=== PATIENT | male | born 1995 | race Caucasian/White ===

== ENCOUNTER 2017-06-06 20:37 | Emergency (ER) | payer MEDICAID, OTHER ==
[2017-06-06] MEDS ORDERED: Lidocaine 1% with EPINEPHrine 1:100,000 20 ML MDV INFILT ONE (20:38)
[2017-06-06] MEDS ORDERED: Clindamycin HCl 150 MG Cap PO ONE (21:07)
[2017-06-06] MEDS ORDERED: Acetaminophen/HYDROcodone 325-5 MG Tab PO ONE (21:11)
--- NOTE | 2017-06-06 21:17 | EDM.PDOC ---
ED HPI GENERAL MEDICAL PROBLEM - General Chief Complaint: Skin Complaint Stated Complaint: CYST ON BUTTOCK Time Seen by Provider: 06/06/17 20:55 Source of Information: Reports: Patient, Old Records History Limitations: Reports: No Limitations - History of Present Illness INITIAL COMMENTS - FREE TEXT/NARRATIVE: 21 yo male started with a pimple on his R buttock last Monday that has grown substantially since then. No fever. Has not been to the clinic. Is not diabetic. No allergies. Onset: Gradual Onset Date: 06/04/17 Duration: Day(s):, Getting Worse Location: Reports: Other (R medial buttocks) Quality: Reports: Burning Severity: Moderate Improves with: Reports: Other (avoiding pressure on area.) Worsens with: Reports: Other (pressure on area. ) Context: Reports: Other (began as a "pimple". 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) - Related Data Allergies Allergy/AdvReac Type Severity Reaction Status Date / Time No Known Allergies Allergy Verified 05/21/14 15:11 Home Meds: Home Meds Clindamycin HCl [Cleocin] 300 mg PO Q8H #14 cap 06/06/17 [Rx] Past Medical History - Past Health History Medical/Surgical History: Denies Medical/Surgical History Social & Family History - Tobacco Use Smoking Status *Q: Never Smoker Second Hand Smoke Exposure: No - Alcohol Use Days Per Week of Alcohol Use: 0 - Recreational Drug Use Recreational Drug Use: No - Living Situation & Occupation Living situation: Reports: with Family Occupation: Student ED ROS GENERAL - Review of Systems Review Of Systems: See Below Constitutional: Reports: No Symptoms GI/Abdominal: Reports: No Symptoms : Reports: No Symptoms Musculoskeletal: Reports: No Symptoms Skin: Reports: Rash (R medial buttocks), Erythema Neurological: Reports: No Symptoms ED EXAM, SKIN/RASH Exam: See Below Exam Limited By: No Limitations General Appearance: Alert, WD/WN, No Apparent Distress Eye Exam: Bilateral Eye: Normal Inspection Throat/Mouth: Normal Lips, Normal Voice, No Airway Compromise Head: Atraumatic, Normocephalic Neck: Normal Inspection Respiratory/Chest: No Respiratory Distress, No Accessory Muscle Use Neurological: Alert, Oriented, CN II-XII Intact, Normal Cognition, No Motor/ Sensory Deficits Psychiatric: Normal Affect, Normal Mood Skin: Warm, Dry, Intact, Erythema, Increased Warmth, Other (abscess R medial buttocks, approx 2.6 cm in diameter) Location, Skin: Other (R medial buttocks) Associated features: Warmth, Tenderness, Induration Lymphatic: No Adenopathy ED SKIN PROCEDURES - I&D Site: R medial buttocks Skin Prep: Providone-Iodine (Betadine) Local Anesthesia: Lidocaine: 1% with EPI Local Anesthetic Volume: 3cc Area Incised With: 11 Blade Drainage: Purulent, Moderate Amount Packed With: 1/2 in. Iodoform Sterile Dressinx4(s) Complications: No Course - Orders/Labs/Meds Meds: Medications Discontinued Medications Generic Name Dose Route Start Last Admin Trade Name Freq PRN Reason Stop Dose Admin Clindamycin HCl 300 mg 06/06/17 21:07 Cleocin PO 06/06/17 21:08 ONETIME ONE Departure - Departure Time of Disposition: 21:21 Disposition: Home, Self-Care 01 Condition: Good Clinical Impression: Encounter for incision and drainage procedure, Abscess of buttock, right - Discharge Information Prescriptions: Clindamycin HCl [Cleocin] 300 mg PO Q8H #14 cap Referrals: Kaiser Lang MD [Primary Care Provider] - Forms: ED Department Discharge, ED Return to Work/School Form Additional Instructions: Sitz baths in warm water several times a day. Take clindamycin every 8 hrs. Recheck in the clinic late or early Monday, call for an appt. Take [place] or acetaminophen for pain relief.
[2017-06-06 21:38] VITALS: BP 134/61
== END 2017-06-06 21:37 | disposition home or self-care (01) ==
LOC: FB.ED 20:37
DX: L02.31 Cutaneous abscess of buttock (principal)
CPT/HCPCS: 10060; 87070; 87075; 87205; 99283; A9270

== ENCOUNTER 2018-03-16 02:55 | Emergency (ER) | payer OTHER ==
[2018-03-16 03:01] VITALS: BP 120/64
--- NOTE | 2018-03-16 03:41 | EDM.PDOC ---
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 There is swelling, ecchymoses, and tenderness at the site of injury, There is no loss of movement or sensation. He has taken no meds. - Related Data Allergies Allergy/AdvReac Type Severity Reaction Status Date / Time naproxen [From Aleve] Allergy Headache Verified 03/16/18 03:44 Past Medical History - Past Health History Medical/Surgical History: Denies Medical/Surgical History Social & Family History - Family History Oncologic: Reports: Colon - Caffeine Use Caffeine Use: Reports: None - Living Situation & Occupation Living situation: Reports: with Family Occupation: Student Review of Systems - Review of Systems Review Of Systems: ROS reveals no pertinent complaints other than HPI. ED EXAM, GENERAL - Physical Exam Exam: See Below Exam Limited By: No Limitations General Appearance: Alert, WD/WN, Mild Distress Head: Normocephalic Neck: Normal Inspection, Non-Tender Respiratory/Chest: Lungs Clear Cardiovascular: Regular Rate, Rhythm Back Exam: Normal Inspection Extremities: Limited Range of Motion (R foot: inspection reveals swelling and ecchymoses overlying the 4th and 5th MT, pain with maneuver, hindfoot and ankle are satisfactory, CMS intact ) Neurological: Alert, Oriented, CN II-XII Intact, No Motor/Sensory Deficits Psychiatric: Normal Affect, Normal Mood Skin Exam: Warm, Dry, Normal Color Course - Vital Signs Text/Narrative:: I reviewed x rays of R foot, negative for fx. Last Recorded V/S: Last Vital Signs Temp 36.7 C 03/16/18 02:59 Pulse 78 03/16/18 02:59 Resp BP 120/64 03/16/18 02:59 Pulse Ox 99 03/16/18 02:59 - Orders/Labs/Meds Orders: Active Orders 24 hr Category Date Time Status Foot Comp Min 3V Rt [CR] Stat Exams 03/16/18 03:22 Ordered Departure - Departure Time of Disposition: 03:52 Disposition: Home, Self-Care 01 Condition: Fair Clinical Impression: Contusion of right foot, initial encounter - Discharge Information Referrals: Kaiser Lang MD [Primary Care Provider] - Forms: ED Department Discharge - Problem List & Annotations (1) Contusion of right foot, initial encounter SNOMED Code(s): 51183585 Code(s): S90.31XA - CONTUSION OF RIGHT FOOT, INITIAL ENCOUNTER Status: Acute Current Visit: Yes Annotation/Comment:: Ibuprofen for pain, heel wt bearing for comfort, bench work for the 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 - Problem List Review Problem List Initiated/Reviewed/Updated: Yes - My Orders Last 24 Hours: My Active Orders 03/16/18 03:22 Foot Comp Min 3V Rt [CR] Stat - Assessment/Plan Last 24 Hours: My Active Orders 03/16/18 03:22 Foot Comp Min 3V Rt [CR] Stat Plan: Follow up with PCP in 1 week for medical clearance.
--- NOTE | 2018-03-16 11:01 | CR ---
INDICATION: 110 pound cylindar fell onto right foot. RIGHT FOOT: Three views of the right foot were obtained and show the site of injury laterally at the 5th metatarsophalangeal joint area. There does appear to be some soft tissue swelling in that area. Dorsal soft tissue swelling at the level of the metatarsals is also seen. An underlying fracture, dislocation, or other significant bone or joint abnormality was not identified. MTDD
== END 2018-03-16 04:14 | disposition home or self-care (01) ==
LOC: FB.ED 02:55
DX: S90.31XA Contusion of right foot, initial encounter (principal); Z88.8 Allergy status to other drugs, medicaments and biological substances; W20.8XXA Other cause of strike by thrown, projected or falling object, initial encounter; Y99.0 Civilian activity done for income or pay
CPT/HCPCS: 73630-RT; 99000; 99283

== ENCOUNTER 2018-06-06 18:45 | Emergency (ER) | payer OTHER ==
[2018-06-06 19:01] VITALS: BP 105/64
--- NOTE | 2018-06-06 19:17 | EDM.PDOC ---
ED HPI GENERAL MEDICAL PROBLEM - General Chief Complaint: Upper Extremity Injury/Pain Stated Complaint: RT SHOULDER PAIN Time Seen by Provider: 06/06/18 18:45 Source of Information: Reports: Patient, Family History Limitations: Reports: No Limitations - History of Present Illness INITIAL COMMENTS - FREE TEXT/NARRATIVE: 22 y.o.w.m came with his mom to the ed due to pain at his right arm and shoulder. Pt does at work a repetitive movement all day long. pt has this pain for weeks and is work related. Pt did not take any motrin/tylenol, he is not allergic to motrin etc. No other acute medical issues. BP 105/64 Pulse 64 RR 18 Pulse ox 100% on RA Temp 36.8 Onset Date: 06/02/18 Onset Time: 06:00 Duration: Day(s):, Constant, Intermittent Location: Reports: Upper Extremity, Right Quality: Reports: Dull Severity: Mild Improves with: Reports: Rest Worsens with: Reports: Movement Context: Reports: Other right shoulder Pain Score (Numeric/FACES): 2 - Related Data Allergies Allergy/AdvReac Type Severity Reaction Status Date / Time No Known Allergies Allergy Verified 06/06/18 19:21 Home Meds: Home Meds Ibuprofen [Motrin] 600 mg PO TID PRN #30 tab 06/06/18 [Rx] Past Medical History - Past Health History Medical/Surgical History: Denies Medical/Surgical History - Past Surgical History GI Surgical History: Reports: Colonoscopy, Other (See Below) Other GI Surgeries/Procedures: Colonoscopy at age 16. Dermatological Surgical History: Reports: Other (See Below) Social & Family History - Family History Oncologic: Reports: Colon - Tobacco Use Smoking Status *Q: Never Smoker - Caffeine Use Caffeine Use: Reports: None - Recreational Drug Use Recreational Drug Use: No - Living Situation & Occupation Living situation: Reports: with Family Occupation: Student Review of Systems - Review of Systems Review Of Systems: See Below Constitutional: Reports: No Symptoms Eyes: Reports: No Symptoms Ears: Reports: No Symptoms Nose: Reports: No Symptoms Mouth/Throat: Reports: No Symptoms Respiratory: Reports: No Symptoms Cardiovascular: Reports: No Symptoms GI/Abdominal: Reports: No Symptoms Genitourinary: Reports: No Symptoms Musculoskeletal: Reports: Shoulder Pain Skin: Reports: No Symptoms Neurological: Reports: No Symptoms Psychiatric: Reports: No Symptoms ED EXAM, GENERAL - Physical Exam Exam: See Below Exam Limited By: No Limitations General Appearance: Alert, WD/WN, Mild Distress Eye Exam: Bilateral Eye: Normal Inspection Ears: Normal External Exam Ear Exam: Bilateral Ear: Auricle Normal Nose: Normal Inspection Throat/Mouth: Normal Inspection, Normal Lips, Normal Teeth, Normal Gums, Normal Oropharynx, Normal Voice, No Airway Compromise Head: Atraumatic, Normocephalic Neck: Normal Inspection, Supple, Non-Tender, Full Range of Motion Respiratory/Chest: No Respiratory Distress, Lungs Clear, Normal Breath Sounds, No Accessory Muscle Use, Chest Non-Tender Cardiovascular: Normal Peripheral Pulses, Regular Rate, Rhythm, No Edema, No Gallop, No JVD, No Murmur, No Rub Peripheral Pulses: 2+: Brachial (L) GI/Abdominal: Normal Bowel Sounds, Soft, Non-Tender, No Organomegaly, No Distention, No Abnormal Bruit, No Mass, Pelvis Stable (Male) Exam: Deferred Rectal (Males) Exam: Deferred Back Exam: Normal Inspection, Full Range of Motion Extremities: Normal Inspection, Normal Range of Motion, No Pedal Edema, Normal Capillary Refill, Other (tender righ biceps muscle) Neurological: Alert, Oriented, CN II-XII Intact, Normal Cognition, Normal Gait, No Motor/Sensory Deficits Psychiatric: Normal Affect, Normal Mood Skin Exam: Warm, Dry, Intact Lymphatic: No Adenopathy Course - Vital Signs Text/Narrative:: 22 y.o.w.m came with his mom to the ed due to pain at his right arm and shoulder. Pt does at work a repetitive movement all day long. pt has this pain for weeks and is work related. Pt did not take any motrin/tylenol, he is not allergic to motrin etc. No other acute medical issues. BP 105/64 Pulse 64 RR 18 Pulse ox 100% on RA Temp 36.8 PE: WNWDW M with left upper arm discomfort, FROM of all extremities Imaging: not indicated Impression: R shoulder sprainarm sprain Tx: Pt will apply ice at home and will buy motrin from [email or web address], he has no insurance Reexam: Improved Plan: D/C with instructions Last Recorded V/S: Last Vital Signs Temp 36.6 C 06/06/18 18:45 Pulse 63 06/06/18 18:45 Resp 18 06/06/18 18:45 BP 105/64 06/06/18 18:45 Pulse Ox 100 06/06/18 18:45 Departure - Departure Time of Disposition: 19:18 Disposition: Home, Self-Care 01 Condition: Good Clinical Impression: Sprain of shoulder, right Qualifiers: Encounter type: subsequent encounter Shoulder sprain type: unspecified sprain Qualified Code(s): S43.401D - Unspecified sprain of right shoulder joint, subsequent encounter - Discharge Information Prescriptions: Ibuprofen [Motrin] 600 mg PO TID PRN #30 tab PRN Reason: Pain Referrals: Kaiser Lang MD [Primary Care Provider] - Forms: ED Department Discharge Additional Instructions: Ice, rest and elevation, motin for paon, light duty for 3 days, please f/u, come back if your symptoms get worse acutely.
== END 2018-06-06 19:27 | disposition home or self-care (01) ==
LOC: FB.ED 18:45
DX: S43.401A Unspecified sprain of right shoulder joint, initial encounter (principal); X50.3XXA Overexertion from repetitive movements, initial encounter
CPT/HCPCS: 99282

== ENCOUNTER 2018-10-28 17:06 | Emergency (ER) | payer SELFPAY ==
[2018-10-28] MEDS ORDERED: SUMAtriptan 6 MG/0.5 ML SDV SUBCUT ONE (17:21)
[2018-10-28] MEDS ORDERED: Ondansetron 8 MG Tab.DIS PO ONE (17:21)
--- NOTE | 2018-10-28 17:24 | EDM.PDOC ---
ED HPI GENERAL MEDICAL PROBLEM - General Stated Complaint: MIGRAINE Time Seen by Provider: 10/28/18 17:06 Source of Information: Reports: Patient, Family History Limitations: Reports: No Limitations - History of Present Illness INITIAL COMMENTS - FREE TEXT/NARRATIVE: 23 y.o.w.m came with his mom to the ed because of migraine H/A with severe pain behind his right eye which mad him to have a vision for a few sec. No trauma, denies H/O Drug use. Pt is nauseated and has photophobia. No other acute medical issues. His grand pa on a brain aneurysm. 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 Dermatological Surgical History: Reports: Other (See Below) Social & Family History - Family History Oncologic: Reports: Colon - Caffeine Use Caffeine Use: Reports: None - Living Situation & Occupation Living situation: Reports: with Family Occupation: Student ED ROS GENERAL - Review of Systems Review Of Systems: See Below Constitutional: Reports: No Symptoms HEENT: Reports: No Symptoms Respiratory: Reports: No Symptoms Cardiovascular: Reports: No Symptoms Endocrine: Reports: No Symptoms GI/Abdominal: Reports: Nausea : Reports: No Symptoms Musculoskeletal: Reports: No Symptoms Skin: Reports: No Symptoms Neurological: Reports: Headache Psychiatric: Reports: No Symptoms Hematologic/Lymphatic: Reports: No Symptoms Immunologic: Reports: No Symptoms - Physical Exam Exam: See Below Exam Limited By: No Limitations General Appearance: Alert, WD/WN, Moderate Distress Eye Exam: Bilateral Eye: Normal Inspection Ears: Normal External Exam, Normal Canal Nose: Normal Inspection, Normal Mucosa, No Blood Throat/Mouth: Normal Inspection, Normal Lips, Normal Teeth, Normal Gums, Normal Voice, No Airway Compromise Head Exam: Atraumatic, Normocephalic Neck: Normal Inspection, Supple, Non-Tender, Full Range of Motion Respiratory/Chest: No Respiratory Distress, Lungs Clear, Normal Breath Sounds, Chest Non-Tender Cardiovascular: Normal Peripheral Pulses, Regular Rate, Rhythm, No Edema, No Gallop, No Rub GI/Abdominal: Normal Bowel Sounds, Soft, Non-Tender, No Organomegaly, No Abnormal Bruit, No Mass, Pelvis Stable (Male) Exam: Deferred Rectal (Males) Exam: Deferred Neuro Exam (Abbreviated): Alert, Oriented, CN II-XII Intact, Normal Cognition, Normal Gait DTR: 0: Tricep (R), Achilles (R), 2+: Bicep (L) Back Exam: Normal Inspection, Full Range of Motion Extremities: Normal Inspection, Normal Range of Motion, Non-Tender, No Pedal Edema Psychiatric: Normal Affect, Normal Mood Skin Exam: Warm, Dry, Intact, Normal Color, No Rash Course - Vital Signs Text/Narrative:: 23 y.o.w.m came with his mom to the ed because of migraine H/A with severe pain behind his right eye which mad him to have a vision for a few sec. No trauma, denies H/O Drug use. Pt is nauseated and has photophobia. No other acute medical issues. His grand pa on a brain aneurysm. BP RR 18, Pulse ox 100% Temp 36.8 Pulse 81 Imaging: Not indicated.it is not the worst headache ever Labs: Not indicated Impression: Migraine H/A Tx: Zofran, Imitrex, Toradol. Reexam: Pt was 100% improved/pain free. Refused Nausea/pain meds prescriptions Plan: D/C with instructions Last Recorded V/S: Last Vital Signs Temp 36.7 C 10/28/18 17:20 Pulse 70 10/28/18 18:49 Resp 17 10/28/18 18:49 BP 108/67 10/28/18 18:49 Pulse Ox 98 01/27/19 18:49 - Orders/Labs/Meds Meds: Medications Discontinued Medications Generic Name Dose Route Start Last Admin Trade Name Greta PRFlaquita Reason Stop Dose Admin Ketorolac Tromethamine 60 mg 10/28/18 17:59 10/28/18 18:32 Toradol IM 10/28/18 18:00 60 mg ONETIME ONE Administration Ondansetron HCl 8 mg 10/28/18 17:21 10/28/18 17:31 Zofran Odt PO 10/28/18 17:22 8 mg ONETIME ONE Administration Sumatriptan Succinate 6 mg 10/28/18 17:21 10/28/18 17:31 Imitrex SUBCUT 10/28/18 17:22 6 mg ONETIME ONE Administration Departure - Departure Time of Disposition: 18:46 Disposition: Home, Self-Care 01 Condition: Good Clinical Impression: Migraine Qualifiers: Status migrainosus presence: without status migrainosus Intractability: not intractable - Discharge Information Instructions: Migraine Headache Referrals: Kaiser Lang MD [Primary Care Provider] - Forms: ED Department Discharge Additional Instructions: Please f/u with your PMD as needed, please come back if your symptoms get worse acutely
[2018-10-28] MEDS ORDERED: Ketorolac 60 MG/2 ML SDV IM ONE (17:59)
[2018-10-28 19:15] VITALS: BP 108/67
== END 2018-10-28 18:55 | disposition home or self-care (01) ==
LOC: FB.ED 17:06
DX: G43.909 Migraine, unspecified, not intractable, without status migrainosus (principal)
CPT/HCPCS: 96372; 99283; A9270; J1885; J3030

== ENCOUNTER 2018-12-30 12:10 | Emergency (ER) | payer SELFPAY ==
[2018-12-30 12:36] VITALS: BP 96/62
[2018-12-30] MEDS ORDERED: Ketorolac 30 MG/ML SDV IVPUSH ONE (12:39)
[2018-12-30] MEDS ORDERED: Metoclopramide 10 MG/2 ML SDV IVPUSH ONE (12:39)
--- NOTE | 2018-12-30 12:45 | EDM.PDOC ---
ED HPI GENERAL MEDICAL PROBLEM - General Chief Complaint: Headache Stated Complaint: MIGRAINE Time Seen by Provider: 12/30/18 12:30 Source of Information: Reports: Patient, Family History Limitations: Reports: No Limitations - History of Present Illness INITIAL COMMENTS - FREE TEXT/NARRATIVE: c/o migraine awoke at 11:30 and had sharp pain behind L eye, took APAP 1000 mg and naprosyn 250 mg without benefit, came to ED directly, here with mother in ED 2m ago and tx'ed with Zofran 8 mg SL, Imitrex 6 mg SC and Toradol 60 mg IM has had migraines for years mother concerned as they are inc'd frequency and awoke him from sleep today which has not happened in the past, mother requesting imaging no prior head CT in EHR no visual change, some nausea, no V 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, 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 Pain Score (Numeric/FACES): 8 - Related Data Allergies Allergy/AdvReac Type Severity Reaction Status Date / Time No Known Allergies Allergy Verified 12/30/18 12:25 Home Meds: Home Meds Ibuprofen [Motrin] 600 mg PO TID PRN #30 tab 06/06/18 [Rx] Acetaminophen [Tylenol Extra Strength] 1,000 mg PO Q6HR PRN 12/30/18 [History] Naproxen 250 mg PO Q6HR PRN 12/30/18 [History] Past Medical History - Past Health History Medical/Surgical History: Denies Medical/Surgical History - Past Surgical History GI Surgical History: Reports: Colonoscopy, Other (See Below) Other GI Surgeries/Procedures: Colonoscopy at age 16. Dermatological Surgical History: Reports: Other (See Below) Social & Family History - Family History Family Medical History: Noncontributory Oncologic: Reports: Colon - Caffeine Use Caffeine Use: Reports: None - Living Situation & Occupation Living situation: Reports: with Family Occupation: Student ED ROS GENERAL - Review of Systems Review Of Systems: See Below Constitutional: Reports: No Symptoms HEENT: Reports: No Symptoms Respiratory: Reports: No Symptoms Cardiovascular: Reports: No Symptoms Endocrine: Reports: No Symptoms GI/Abdominal: Reports: No Symptoms : Reports: No Symptoms Musculoskeletal: Reports: No Symptoms Skin: Reports: No Symptoms Neurological: Reports: Headache Psychiatric: Reports: No Symptoms Hematologic/Lymphatic: Reports: No Symptoms Immunologic: Reports: No Symptoms ED EXAM, NEURO - Physical Exam Exam: See Below Exam Limited By: No Limitations General Appearance: Alert, WD/WN, Moderate Distress, Other (lying on bed on L side, holding his L eye and L buddhism in his hand, rocking from side to side, eyes closed, normal speech, appears uncomfortable) Ears: Normal External Exam Nose: Normal Inspection Head Exam: Atraumatic, Normocephalic Neck: Normal Inspection, Non-Tender Respiratory/Chest: No Respiratory Distress Cardiovascular: Regular Rate, Rhythm Course - Vital Signs Last Recorded V/S: Last Vital Signs Temp 36.8 C 12/30/18 12:36 Pulse 116 H 12/30/18 12:36 Resp 16 12/30/18 12:36 BP 96/62 12/30/18 12:36 Pulse Ox 99 12/30/18 12:36 - Orders/Labs/Meds Orders: Active Orders 24 hr Category Date Time Status Head wo Cont [CT] Stat Exams 12/30/18 12:40 Taken Meds: Medications Discontinued Medications Generic Name Dose Route Start Last Admin Trade Name Greta PRN Reason Stop Dose Admin Diphenhydramine HCl 50 mg 12/30/18 13:52 12/30/18 13:56 Benadryl IVPUSH 12/30/18 13:53 50 mg ONETIME ONE Administration Ketorolac Tromethamine 30 mg 12/30/18 12:39 12/30/18 12:53 Toradol IVPUSH 12/30/18 12:40 30 mg ONETIME ONE Administration Metoclopramide HCl 10 mg 12/30/18 12:39 12/30/18 12:53 Reglan IVPUSH 12/30/18 12:40 10 mg ONETIME ONE Administration - Re-Assessments/Exams Free Text/Narrative Re-Assessment/Exam: 12/30/18 14:38 after Toradol, Reglan and Benadryl, pt said that he was feeling better, the pain was 4-5/10 and that he was ready to be d/c'ed. He has already called off work today. Has had LAKHANI since age 10. Often will have a light LAKHANI that goes away with meds, which happened daily this week. Had the more severe LAKHANI in Sep and Oct and now today. 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 Identifies no new stressors or triggers. Agrees to see PCP Dr Lang in f/u. State Imitrex "did not work." However, has not used it at home. Had been given Zofran and Imitrex on arrival to ED in October, and had felt flushed after the Imitrex. Then had received Toradol later. Pt informed that the combination of the 3 meds may have benefited and that a multimodality approach often needs to be used. States he has had visual disturbance typically before his rare more severe migraines. Today was different as there was no visual disturbance and the pain was there after he woke up. Departure - Departure Time of Disposition: 14:36 Disposition: Home, Self-Care 01 Condition: Good Clinical Impression: Migraine - Discharge Information *PRESCRIPTION DRUG MONITORING PROGRAM REVIEWED*: Not Applicable *COPY OF PRESCRIPTION DRUG MONITORING REPORT IN PATIENT KVNG: Not Applicable Instructions: Recurrent Migraine Headache Referrals: Kaiser Lang MD [Primary Care Provider] - Forms: ED Department Discharge, ED Return to Work/School Form Additional Instructions: Get adequate rest. No work tonight. Use ice pack to forehead for 10 minutes every hour as needed. Take acetaminophen 500 mg 2 tabs and Aleve 1 tab every 6 hours for [address] Lang in the next 2-3 days for further recommendations. Return to ED if ou are feeling worse. - My Orders Last 24 Hours: My Active Orders 12/30/18 12:40 Head wo Cont [CT] Stat - Assessment/Plan Last 24 Hours: My Active Orders 12/30/18 12:40 Head wo Cont [CT] Stat
[2018-12-30] MEDS ORDERED: diphenhydrAMINE 50 MG/ML SDV IVPUSH ONE (13:52)
== END 2018-12-30 14:30 | disposition home or self-care (01) ==
LOC: FB.ED 12:10
DX: G43.909 Migraine, unspecified, not intractable, without status migrainosus (principal)
CPT/HCPCS: 70450; 96374; 96375; 99284; J1200; J1885; J2765

== ENCOUNTER 2019-11-22 13:39 | Emergency (ER) | payer BC ==
[2019-11-22] MEDS ORDERED: Sodium Chloride 0.9% 10 ML Syringe FLUSH PRN (14:03)
[2019-11-22] MEDS ORDERED: Aspirin 81 MG Tab.Chew PO ONE (14:03)
--- NOTE | 2019-11-22 14:09 | EDM.PDOC ---
ED HPI GENERAL MEDICAL PROBLEM - General Chief Complaint: Chest Pain Stated Complaint: CHEST PAINS Time Seen by Provider: 11/22/19 14:04 Source of Information: Reports: Patient History Limitations: Reports: No Limitations - History of Present Illness INITIAL COMMENTS - FREE TEXT/NARRATIVE: Presents with left sided chest pain, onset 45 min ago while playing video games. Pain described as a squeezing, intermittently radiates to right chest, associated with shortness of breath. Symptoms have significantly improved since onset. Similar symptoms in the past w/o etiology. Denies prior h/o CAD or DVT/ PE. Patient is a non-smoker. FMHx significant for DVT (mother), but no CAD. Onset: Today Duration: Hour(s): (0.75) Location: Reports: Chest Left Upper Chest Pain Score (Numeric/FACES): 6 - Related Data Allergies Allergy/AdvReac Type Severity Reaction Status Date / Time No Known Allergies Allergy Verified 12/30/18 12:25 Home Meds: Home Meds Ibuprofen [Motrin] 600 mg PO TID PRN #30 tab 06/06/18 [Rx] Acetaminophen [Tylenol Extra Strength] 1,000 mg PO Q6HR PRN 12/30/18 [History] Naproxen 250 mg PO Q6HR PRN 12/30/18 [History] Past Medical History Cardiovascular History: Denies: Blood Clots/VTE/DVT, CAD Respiratory History: Denies: PE Neurological History: Reports: Migraines - Past Surgical History GI Surgical History: Reports: Colonoscopy, Other (See Below) Other GI Surgeries/Procedures: Colonoscopy at age 16. Dermatological Surgical History: Reports: Other (See Below) Social & Family History - Family History Family Medical History: Noncontributory Oncologic: Reports: Colon - Tobacco Use Smoking Status *Q: Never Smoker - Caffeine Use Caffeine Use: Reports: None - Living Situation & Occupation Living situation: Reports: with Family Occupation: Student ED ROS GENERAL - Review of Systems Review Of Systems: Comprehensive ROS is negative, except as noted in HPI. ED EXAM, GENERAL - Physical Exam Exam: See Below Exam Limited By: No Limitations General Appearance: Alert, WD/WN, No Apparent Distress Ears: Normal External Exam Nose: Normal Inspection Throat/Mouth: No Airway Compromise Head: Atraumatic, Normocephalic Neck: Normal Inspection Respiratory/Chest: No Respiratory Distress, Lungs Clear, Normal Breath Sounds, Chest Non-Tender Cardiovascular: Regular Rate, Rhythm, No Edema, No Murmur Back Exam: Full Range of Motion Extremities: No Pedal Edema Neurological: Alert, Normal Cognition Psychiatric: Normal Affect, Normal Mood Skin Exam: Warm, Dry, Intact EKG INTERPRETATION EKG Date: 11/22/19 Time: 13:44 Rhythm: NSR Rate (Beats/Min): 70 [place]: Normal P-Wave: Present QRS: Normal ST-T: Normal QT: Normal Course - Vital Signs Last Recorded V/S: Last Vital Signs Temp 36.7 C 11/22/19 13:54 Pulse 72 11/22/19 15:19 Resp 18 11/22/19 15:19 BP 109/59 L 11/22/19 15:19 Pulse Ox 99 11/22/19 15:19 - Orders/Labs/Meds Orders: Active Orders 24 hr Category Date Time Status EKG Documentation Completion [RC] ASDIRECTED Care 11/22/19 13:59 Active CXR [Chest 1V Frontal] [CR] Stat Exams 11/22/19 13:58 Taken Sodium Chloride 0.9% [Saline Flush] Med 11/22/19 14:03 Active 10 ml FLUSH ASDIRECTED PRN Saline Lock Insert [OM.PC] Routine Oth 11/22/19 14:03 Ordered EKG 12 Lead [EK] Stat Ther 11/22/19 13:59 Ordered Medication Orders Sodium Chloride (Saline Flush) 10 ml FLUSH ASDIRECTED PRN PRN Reason: Keep Vein Open Last Admin: 11/22/19 14:16 Dose: 10 ml Labs: Laboratory Tests 11/22/19 11/22/19 11/22/19 Range/Units 14:30 14:30 14:30 WBC 6.8 (4.5-12.0) X10-3/uL RBC 5.17 (4.30-5.75) x10(6)uL Hgb 15.6 (13.5-17.8) g/dL Hct 45.4 (30.0-51.3) % MCV 87.8 (80-96) fL MCH 30.1 (27.7-33.6) pg MCHC 34.3 (32.2-35.4) g/dL RDW 12.7 (11.5-15.5) % Plt Count 286 (125-369) X10(3)uL MPV 7.1 L (7.4-10.4) fL Neut % (Auto) 48.4 (46-82) % Lymph % (Auto) 37.4 H (13-37) % [place] % (Auto) 8.9 (4-12) % Eos % (Auto) 4 (1.0-5.0) % Baso % (Auto) 1 (0-2) % Neut # (Auto) 3.3 (1.6-8.3) # Lymph # (Auto) 2.5 (0.6-5.0) # [place] # (Auto) 0.6 (0.0-1.3) # Eos # (Auto) 0.3 (0.0-0.8) # Baso # (Auto) 0.1 (0.0-0.2) # PT 10.4 (9.0-11.1) sec INR 1.07 (1.00-1.24) APTT 26.9 (24.4-33.2) SECONDS D-Dimer, Quantitative 0.20 (0.0-0.59) mg/LFEU Sodium 142 (135-145) mmol/L Potassium 3.7 (3.5-5.3) mmol/L Chloride 105 (100-110) mmol/L Carbon Dioxide 27 (21-32) mmol/L BUN 16 (7-18) mg/dL Creatinine 1.0 (0.70-1.30) mg/dL Est Cr Clr Drug Dosing 112.10 mL/min Estimated GFR (MDRD) > 60 (>60) BUN/Creatinine Ratio 16.0 (9-20) Glucose 110 (80-116) mg/dL Calcium 9.1 (8.6-10.2) mg/dL Total Bilirubin 1.0 (0.1-1.3) mg/dL AST 16 (5-25) IU/L ALT 24 (12-36) U/L Alkaline Phosphatase 53 L (56-112) IU/L Troponin I (4.0-60.3) pg/mL Total Protein 7.3 (6.0-8.0) g/dL Albumin 4.1 (3.5-5.2) g/dL Globulin 3.2 g/dL Albumin/Globulin Ratio 1.3 02/21/20 Range/Units 14:30 WBC (4.5-12.0) X10-3/uL RBC (4.30-5.75) x10(6)uL Hgb (13.5-17.8) g/dL Hct (30.0-51.3) % MCV (80-96) fL MCH (27.7-33.6) pg MCHC (32.2-35.4) g/dL RDW (11.5-15.5) % Plt Count (125-369) X10(3)uL MPV (7.4-10.4) fL Neut % (Auto) (46-82) % Lymph % (Auto) (13-37) % [place] % (Auto) (4-12) % Eos % (Auto) (1.0-5.0) % Baso % (Auto) (0-2) % Neut # (Auto) (1.6-8.3) # Lymph # (Auto) (0.6-5.0) # [place] # (Auto) (0.0-1.3) # Eos # (Auto) (0.0-0.8) # Baso # (Auto) (0.0-0.2) # PT (9.0-11.1) sec INR (1.00-1.24) APTT (24.4-33.2) SECONDS D-Dimer, Quantitative (0.0-0.59) mg/LFEU Sodium (135-145) mmol/L Potassium (3.5-5.3) mmol/L Chloride (100-110) mmol/L Carbon Dioxide (21-32) mmol/L BUN (7-18) mg/dL Creatinine (0.70-1.30) mg/dL Est Cr Clr Drug Dosing mL/min Estimated GFR (MDRD) (>60) BUN/Creatinine Ratio (9-20) Glucose (80-116) mg/dL Calcium (8.6-10.2) mg/dL Total Bilirubin (0.1-1.3) mg/dL AST (5-25) IU/L ALT (12-36) U/L Alkaline Phosphatase (56-112) IU/L Troponin I < 4.0 L (4.0-60.3) pg/mL Total Protein (6.0-8.0) g/dL Albumin (3.5-5.2) g/dL Globulin g/dL Albumin/Globulin Ratio Meds: Medications Generic Name Dose Route Start Last Admin Trade Name Freq PRN Reason Stop Dose Admin Sodium Chloride 10 ml 11/22/19 14:03 11/22/19 14:16 Saline Flush FLUSH 10 ml ASDIRECTED PRN Administration Keep Vein Open Discontinued Medications Generic Name Dose Route Start Last Admin Trade Name Freq PRN Reason Stop Dose Admin Aspirin 324 mg 11/22/19 14:03 11/22/19 14:16 Aspirin PO 11/22/19 14:04 324 mg ONETIME ONE Administration - Radiology Interpretation Free Text/Narrative:: CXR: No acute process. (ED provider interpretation) - Re-Assessments/Exams Free Text/Narrative Re-Assessment/Exam: 11/22/19 15:36 Pain has resolved. Departure - Departure Time of Disposition: 15:37 Disposition: Home, Self-Care 01 Condition: Good Clinical Impression: Atypical chest pain Instructions: Nonspecific Chest Pain, [id number] Referrals: Kaiser Lang MD [ED Physician] - Forms: ED Department Discharge Additional Instructions: Follow up with your primary physician in 3-4 days. Return to the ER if symptoms recur or worsen. Sepsis Event Note - Evaluation Sepsis Screening Result: No Definite Risk - Focused Exam Vital Signs: Vital Signs Temp Pulse Resp BP Pulse Ox 11/22/19 15:19 72 18 109/59 L 99 11/22/19 14:55 76 16 111/71 99 11/22/19 14:36 77 16 118/65 99 11/22/19 13:54 36.7 C 87 18 135/71 98 Date Exam was Performed: 11/22/19 Time Exam was Performed: 15:37 - My Orders Last 24 Hours: My Active Orders 11/22/19 13:58 CXR [Chest 1V Frontal] [CR] Stat 11/22/19 13:59 EKG Documentation Completion [RC] ASDIRECTED EKG 12 Lead [EK] Stat 11/22/19 14:03 Sodium Chloride 0.9% [Saline Flush] 10 ml FLUSH ASDIRECTED PRN Saline Lock Insert [OM.PC] Routine - Assessment/Plan Last 24 Hours: My Active Orders 11/22/19 13:58 CXR [Chest 1V Frontal] [CR] Stat 11/22/19 13:59 EKG Documentation Completion [RC] ASDIRECTED EKG 12 Lead [EK] Stat 11/22/19 14:03 Sodium Chloride 0.9% [Saline Flush] 10 ml FLUSH ASDIRECTED PRN Saline Lock Insert [OM.PC] Routine
[2019-11-22 15:42] VITALS: BP 105/58; PULSE 64
== END 2019-11-22 15:48 | disposition home or self-care (01) ==
LOC: FB.ED 13:39
DX: R07.89 Other chest pain (principal)
CPT/HCPCS: 36415; 71045; 80053; 84484; 85025; 85379; 85610; 85730; 93005; 99285-25; A9270-GY

== ENCOUNTER 2023-06-19 11:50 | Emergency (ER) | payer BC ==
[2023-06-19] MEDS ORDERED: Sodium Chloride 0.9% 10 ML Syringe FLUSH PRN (12:16)
[2023-06-19] MEDS ORDERED: SUMAtriptan 6 MG/0.5 ML SDV SUBCUT ONE (12:16)
[2023-06-19] MEDS ORDERED: Ondansetron 4 MG/2 ML SDV IVPUSH ONE (12:16)
[2023-06-19 12:31] LABS: BASOPHILS ABSOLUTE AUTO 0.1 x10-3/uL (0.0-0.3); BASOPHILS PERCENT AUTO 1.2 % (0.3-3.8); EOSINOPHILS ABSOLUTE AUTO 0.3 x10-3/uL (0.0-0.6); EOSINOPHILS PERCENT AUTO 3.9 % (0.1-6.8); HEMATOCRIT 44.3 % (38.3-50.1); HEMOGLOBIN 15.5 g/dL (12.9-17.7); LYMPHOCYTES ABSOLUTE AUTO 2.6 x10-3/uL (0.5-4.5); LYMPHOCYTES PERCENT AUTO 31.2 % (15.8-45.3); MEAN CORPUSCULAR HEMOGLOBIN 30.8 pg (27.0-33.3); MEAN CORPUSCULAR VOLUME 87.9 fL (80.8-98.7); MEAN PLATELET VOLUME 6.8 fL (6.7-11.0); MONOCYTES ABSOLUTE AUTO 0.7 x10-3/uL (0.0-1.2); MONOCYTES PERCENT AUTO 8.4 % (5.5-15.2); NEUTROPHILS ABSOLUTE AUTO 4.7 x10-3/uL (1.7-6.9); NEUTROPHILS PERCENT AUTO 55.3 % (40.3-71.8); PLATELET COUNT,PLT 288 x10(3)uL (117-477); RED BLOOD CELL COUNT 5.04 x10(6)uL (3.90-5.90); RED CELL DISTRIBUTION WIDTH 13.4 % (12.4-15.0); WHITE BLOOD CELL COUNT,WBC 8.5 x10-3/uL (3.2-10.1)
[2023-06-19 12:36] LABS: BLOOD UREA NITROGEN,BUN 14 mg/dL (7-18); BUN/CREATININE RATIO 12.7 (9-20); CALCIUM 9.2 mg/dL (8.6-10.2); CARBON DIOXIDE,CO2 30 mmol/L (21-32); CHLORIDE,CL 103 mmol/L (100-110); CREATININE 1.1 mg/dL (0.70-1.30); EST CRCL DRUG DOSING (CG) 99.32 mL/min; ESTIMATED GFR 96 mL/min (>60); GLUCOSE RANDOM 92 mg/dL (80-116); POTASSIUM,K 3.4 mmol/L (3.5-5.3); SODIUM,NA 140 mmol/L (135-145)
[2023-06-19 12:42] LABS: A/G RATIO 1.3; ALANINE AMINOTRANSFERASE,ALT 23 U/L (12-36); ALBUMIN 4.4 g/dL (3.5-5.2); ALKALINE PHOSPHATASE 47 IU/L (56-112); ASPARTATE AMNIOTRANSFERASE,AST 17 IU/L (5-25); BILIRUBIN TOTAL 1.2 mg/dL (0.1-1.3); MAGNESIUM 1.7 mg/dL (1.8-2.5); PROTEIN TOTAL,TP 7.7 g/dL (6.0-8.0)
[2023-06-19] MEDS ORDERED: Iopamidol 755 Mg/ML 100 ML Bottle IV ONE (12:52)
[2023-06-19 12:59] LABS: SEDIMENTATION RATE MANUAL 1 mm/hr (0-15)
[2023-06-19 15:25] VITALS: BP 102/60; PULSE 82
== END 2023-06-19 15:59 | disposition home or self-care (01) ==
LOC: FB.ED 11:50
DX: G43.109 Migraine with aura, not intractable, without status migrainosus (principal)
CPT/HCPCS: 36415; 70496; 70498; 80053; 83735; 85025; 85651; 86140; 96372; 96374; 99284; J2405; J3030; J3490; Q9967

== ENCOUNTER 2024-05-03 20:46 | Emergency (ER) | payer BC ==
[2024-05-03] MEDS: diphenhydrAMINE 50 MG/ML SDV IM ONE (21:24)
[2024-05-03] MEDS: hydrOXYzine HCl 50 MG/ML SDV IM ONE (21:25)
[2024-05-03] MEDS: Ketorolac 30 MG/ML SDV IM ONE (21:25)
[2024-05-03 22:03] VITALS: BP 111/76; PULSE 61
== END 2024-05-03 22:17 | disposition home or self-care (01) ==
LOC: FB.ED 20:46
DX: G43.909 Migraine, unspecified, not intractable, without status migrainosus (principal); Z79.899 Other long term (current) drug therapy
CPT/HCPCS: 96372; 99283; J1200; J1885; J3410

== ENCOUNTER 2024-07-15 14:48 | Emergency (ER) | payer BC ==
[2024-07-15 15:05] VITALS: BP 114/72; PULSE 82
[2024-07-15 15:19] LABS: BASOPHILS ABSOLUTE AUTO 0.1 x10-3/uL (0.0-0.3); BASOPHILS PERCENT AUTO 1.2 % (0.3-3.8); EOSINOPHILS ABSOLUTE AUTO 0.3 x10-3/uL (0.0-0.6); EOSINOPHILS PERCENT AUTO 3.7 % (0.1-6.8); HEMATOCRIT 46.7 % (38.3-50.1); HEMOGLOBIN 16.2 g/dL (12.9-17.7); LYMPHOCYTES ABSOLUTE AUTO 1.9 x10-3/uL (0.5-4.5); LYMPHOCYTES PERCENT AUTO 25.5 % (15.8-45.3); MEAN CORPUSCULAR HEMOGLOBIN 30.7 pg (27.0-33.3); MEAN CORPUSCULAR HGB CONC 34.6 g/dL (28.7-35.3); MEAN CORPUSCULAR VOLUME 88.8 fL (80.8-98.7); MEAN PLATELET VOLUME 7.3 fL (6.7-11.0); MONOCYTES ABSOLUTE AUTO 0.6 x10-3/uL (0.0-1.2); MONOCYTES PERCENT AUTO 8.3 % (5.5-15.2); NEUTROPHILS ABSOLUTE AUTO 4.5 x10-3/uL (1.7-6.9); NEUTROPHILS PERCENT AUTO 61.3 % (40.3-71.8); PLATELET COUNT,PLT 297 x10(3)uL (117-477); RED BLOOD CELL COUNT 5.26 x10(6)uL (3.90-5.90); RED CELL DISTRIBUTION WIDTH 13.5 % (12.4-15.0); WHITE BLOOD CELL COUNT,WBC 7.4 x10-3/uL (3.2-10.1)
[2024-07-15 15:23] LABS: BLOOD UREA NITROGEN,BUN 8 mg/dL (7-18); CALCIUM 8.7 mg/dL (8.6-10.2); CARBON DIOXIDE,CO2 30 mmol/L (21-32); CHLORIDE,CL 106 mmol/L (100-110); ESTIMATED GFR 106 mL/min (>60); GLUCOSE RANDOM 121 mg/dL (80-116); POTASSIUM,K 3.7 mmol/L (3.5-5.3); SODIUM,NA 144 mmol/L (135-145)
[2024-07-15 15:35] LABS: A/G RATIO 1.3; ALANINE AMINOTRANSFERASE,ALT 34 U/L (12-36); ALBUMIN 4.2 g/dL (3.5-5.2); ALKALINE PHOSPHATASE 48 IU/L (56-112); ASPARTATE AMNIOTRANSFERASE,AST 16 IU/L (5-25); PROTEIN TOTAL,TP 7.4 g/dL (6.0-8.0)
== END 2024-07-15 16:15 | disposition home or self-care (01) ==
LOC: FB.ED 14:48
DX: R07.89 Other chest pain (principal); E66.9 Obesity, unspecified; Z86.16 Personal history of COVID-19; Z79.899 Other long term (current) drug therapy; Z68.31 Body mass index [BMI] 31.0-31.9, adult
CPT/HCPCS: 36415; 80053; 84484; 85025; 85379; 93005; 93010; 99283; 99285